=== PATIENT | female | born 1960 | race Caucasian/White ===

== ENCOUNTER → 2017-04-07 | Outpatient (CLI) | payer OTHER ==
[~2017-04-07] MED LIST: ABILIFY10 MG PO; ANCEF,KEFZ2 GM/100 M IV; APIDRA SOL100 UNIT/1 SC; APIDRA100 UNIT/1 SC; ASPIR-LOW81 MG PO; AUGMENTIN875 MG PO; BIOTIN1000 MICRO PO; COZAAR100 MG PO; COZAAR50 MG PO; CYMBALTA60 MG PO; DIOVAN80 MG PO; Ecotrin PO; Feosol PO; GLUCOPHAGE1000 MG PO; GLUCOTROL10 MG PO; Hydrodiuril,Oretic,E PO; Hyzaar 100-25 PO; INVANZ1 GM IM; INVanz IV; JANUVIA100 MG PO; Januvia PO; LANTUS 3 M100 UNITS1 SC; LEVAQUIN500 MG PO; LEVAQUIN750 MG PO; LOW DOSE ASPIRI81 M1 PO; LYRICA75 MG PO; MAGNESIUM OXID200 MG PO; MOTRIN600 MG PO; NOHOMEMEDS; NORVASC10 MG PO; NOVOLOG PE100 UNITS/ SC; Norvasc PO; NovoLOG, HumaLOG SC; PRAVACHOL40 MG PO; PRAVASTATIN SOD40 MG PO; PROBIOTIC1 EAC1 PO; Percocet 5/325,Endoc PO; Pravachol PO; Protonix PO; TESSALON PERLE100 MG PO; TRAMADOL HCL50 MG PO; ULTRACET1 TABLET PO; VITAMIN D31000 UNIT PO; Vicodin 5/500 PO
== END | disposition home or self-care (01) ==
LOC: RAD 17:48
DX: R59.0 Localized enlarged lymph nodes (principal)
CPT/HCPCS: 93971